=== PATIENT | male | born 1985 | race African-American/Black ===

== ENCOUNTER 2017-03-20 04:02 | Inpatient (IN) | payer OTHER ==
--- NOTE | 2017-03-20 04:27 | HP ---
CIWA Score - CIWA Score Nausea/Vomitin Muscle Tremors: 3 Anxiety: 3 Agitation: 2 Paroxysmal Sweats: 3 Orientation: 0-Oriented Tacttile Disturbances: 0-None Auditory Disturbances: 0-None Visual Disturbances: 0-None Headache: 3-Moderate CIWA-Ar Total Score: 17 Admission ROS S - HPI Chief Complaint: Alcohol withdrawal symptoms Allergies/Adverse Reactions: Allergies Allergy/AdvReac Type Severity Reaction Status Date / Time No Known Drug Allergies Allergy Verified 11/17/13 20:09 Pork/Porcine Containing AdvReac Verified 11/17/13 20:09 Products History of Present Illness: 31 years old male with a long history of alcohol, marijuana and cocaine dependence is seeking admission to detox. Patient has been in previous detox and reports 2 years of sobriety. He has medical history of asthma and depression. Denies suicidal ideation at this time. Patient states ," My goal is to stay clean and be with my daughter." Exam Limitations: No Limitations - Ebola screening Have you traveled outside of the country in the last 21 days: No Have you had contact with anyone from an Ebola affected area: No Have you been sick,other than usual withdrawal symptoms: No Do you have a fever: No - Review of Systems Constitutional: Chills, Loss of Appetite, Night Sweats, Changes in sleep EENT: reports: No Symptoms Reported Respiratory: reports: No Symptoms reported Cardiac: reports: No Symptoms Reported GI: reports: Nausea, Poor Appetite, Poor Fluid Intake, Abdominal cramping : reports: No Symptoms Reported Musculoskeletal: reports: No Symptoms Reported Neuro: reports: Headache, Tingling, Tremors Endocrine: reports: No Symptoms Reported Hematology: reports: No Symptoms Reported Psychiatric: reports: Orientated x3, Agitated, Anxious, Depressed Other Systems: Reviewed and Negative Patient History - Patient Medical History Hx Anemia: No Hx Asthma: Yes Hx Chronic Obstructive Pulmonary Disease (COPD): No Hx Cancer: No Hx Cardiac Disorders: No Hx Congestive Heart Failure: No Hx Hypertension: No Hx Hypercholesterolemia: No Hx Pacemaker: No HX Cerebrovascular Accident: No Hx Seizures: No Hx Dementia: No Hx Diabetes: No Hx Gastrointestinal Disorders: No Hx Liver Disease: No Hx Genitourinary Disorders: No Hx Sexually Transmitted Disorders: No Hx Renal Disease (ESRD): No Hx Thyroid Disease: No Hx Human Immunodeficiency Virus (HIV): No (Negative 2016) Hx Hepatitis C: No (Negative 2017) Hx Depression: No Hx Suicide Attempt: No Hx Bipolar Disorder: Yes Hx Schizophrenia: No - Patient Surgical History Past Surgical History: No Hx Neurologic Surgery: No Hx Cataract Extraction: No Hx Cardiac Surgery: No Hx Lung Surgery: No Hx Abdominal Surgery: No Hx Appendectomy: No Hx Cholecystectomy: No Hx Genitourinary Surgery: No Hx Orthopedic Surgery: No Anesthesia Reaction: No - PPD History Previous Implant?: Yes Documented Results: Negative w/o proof Implanted On Prior [facility] Admission?: Yes Date: 11/19/13 PPD to be Administered?: Yes - Reproductive History Patient is a Female of Child Bearing Age (11 -55 yrs old): No (Male) - Smoking Cessation Smoking history: Current every day smoker Have you smoked in the past 12 months: Yes Aproximately how many cigarettes per day: 40 Hx Chewing Tobacco Use: No Initiated information on smoking cessation: Yes 'Breaking Loose' booklet given: 03/20/17 - Substance & Tx. History Hx Alcohol Use: Yes (BEER) Hx Substance Use: Yes (Cocaine, marijuana) Substance Use Type: Cocaine, Marijuana Hx Substance Use Treatment: Yes ([facility]) - Substances Abused Alcohol Route: Oral Frequency: Daily Amount used: Beer: 2 (6 packs) Age of first use: 18 Date of Last Use: 03/19/17 Cocaine Route: Inhalation Frequency: Daily Amount used: $400 per day Age of first use: 18 Date of Last Use: 03/19/17 Marijuana/Hashish Route: Smoking Frequency: Daily Amount used: $40 Age of first use: 18 Date of Last Use: 03/19/17 Family Disease History - Family Disease History Family Disease History: Other: Father (alcohol and drugs), Mother (alcohol and drugs) Admission Physical Exam [facility] - Physical General Appearance: Yes: Moderate Distress, Tremorous, Irritable, Sweating, Anxious HEENTM: Yes: EOMI, Normal Voice, [place] Respiratory: Yes: Lungs Clear, Normal Breath Sounds, No Respiratory Distress Neck: Yes: Supple Breast: Yes: Breast Exam Deferred Cardiology: Yes: Regular Rhythm, Regular Rate, S1, S2, Other (chest wall) Abdominal: Yes: Normal Bowel Sounds, Soft Genitourinary: Yes: Within Normal Limits Musculoskeletal: Yes: Within Normal Limits Extremities: Yes: Tremors Neurological: Yes: Alert, Normal Response Integumentary: Yes: Dry, Other (both arms) Lymphatic: Yes: Within Normal Limits - Diagnostic (1) Alcohol dependence with uncomplicated withdrawal Current Visit: Yes Status: Chronic (2) Asthma Current Visit: Yes Status: Chronic (3) Depression Current Visit: Yes Status: Chronic (4) Cannabis dependence Current Visit: Yes Status: Chronic (5) Cocaine dependence Current Visit: Yes Status: Chronic (6) Nicotine dependence Current Visit: No Status: Acute Cleared for Admission S - Detox or Rehab [facility] Level of Care: Medically Managed Detox Regimen/Protocol: Librium BHS Breath Alcohol Content Breath Alcohol Content: 0 Vital Signs - Vital Signs Vital Signs Refused: Yes Temperature: 96.7 F Temperature Source: Oral Pulse Rate: 86 Respiratory Rate: 20 Blood Pressure: 162/97 BP Location: Left Arm Blood Pressure Position: Sitting - Height Height: 5 ft 9 in - Weight Weight: 183 lb Weight Measurement Method: Standing Scale Body Mass Index (BMI): 27.0 - Bowel Function Bowel Movement: Yes (BM in the morning) Urine Drug Screen - Test Device Lot Number: [id number] Expiration Date: 11/13/18 - Control Is Test Valid: Yes - Results Drug Screen Negative: Yes Urine Drug Screen Results: THC-Marijuana, CHANELLE-Cocaine
[2017-03-20] MEDS ORDERED: hydrOXYzine PAMOATE 50 MG CAPSULE (FP) PO PRN (04:42)
[2017-03-20] MEDS ORDERED: guaiFENesin/D-METHORPHAN HB 10 ML UNIT-DOSE CUPS PO PRN (04:42)
[2017-03-20] MEDS ORDERED: MAGNESIUM HYDROX 2400MG/30ML ORAL SUSPENSION 30 ML CUP PO PRN (04:42)
[2017-03-20] MEDS ORDERED: IBUPROFEN 400 MG TABLET (FP) PO PRN (04:42)
[2017-03-20] MEDS ORDERED: chlordiazePOXIDE HCL 25 MG CAPSULE PO ONE (04:42)
[2017-03-20] MEDS ORDERED: chlordiazePOXIDE HCL 25 MG CAPSULE PO PRN (04:42)
[2017-03-20] MEDS ORDERED: NICOTINE POLACRILEX 2 MG GUM BC PRN (04:42)
[2017-03-20] MEDS ORDERED: ACETAMINOPHEN 325 MG TABLET (FP) PO PRN (04:42)
[2017-03-20] MEDS ORDERED: MENTHOL/PHENOL 1 EACH UD MM PRN (04:42)
[2017-03-20] MEDS ORDERED: LOPERAMIDE HCL 2 MG CAPSULE PO PRN (04:42)
[2017-03-20] MEDS ORDERED: P-EPHED 60MG/TRIPROLIDI 2.5MG TABLET PO PRN (04:42)
[2017-03-20] MEDS ORDERED: MAG HYDROX/AL HYDROX/SIMETH 30 ML UNIT-DOSE CUP PO PRN (04:42)
[2017-03-20] MEDS ORDERED: MAGNESIUM CITRATE 300 ML BOTTLE PO PRN (04:42)
[2017-03-20] MEDS ORDERED: ALBUTEROL SO4 18 GM HFA INHALER IH PRN (04:46)
[2017-03-20 04:51] VITALS: BMI 27.0
[2017-03-20] MEDS: chlordiazePOXIDE HCL 25 MG CAPSULE PO SCH ×4 (05:55→22:08)
[2017-03-20] MEDS: NICOTINE 14 MG/24 HOURS TOPICAL PATCH TD SCH (10:24)
[2017-03-20] MEDS: PRENATAL VITAMINS W/ FOLIC ACID TABLET (FP) PO SCH (10:24)
--- NOTE | 2017-03-20 10:55 | CONSULT ---
[facility] Psychiatric Consult - Data Date of interview: 03/20/17 Admission source: [facility] Identifying data: Readmission to [facility] for this 31 y/o AA male seeking detox treatment on for alcohol,cannabis and cocaine dependence.Patient is single,a father of one,domiciled,unemployed and supported on SSI benefits. Substance Abuse History: Confirmed by patient in this interview.See current [facility] report for details. Smoking history: Current every day smoker. Have you smoked in the past 12 months: Yes. Aproximately how many cigarettes per day: 40. Hx Chewing Tobacco Use: No. Initiated information on smoking cessation: Yes. 'Breaking Loose' booklet given: 03/20/17. - Substance & Tx. History. Hx Alcohol Use: Yes (BEER). Hx Substance Use: Yes (Cocaine, marijuana). Substance Use Type: Cocaine, Marijuana. Hx Substance Use Treatment: Yes ([facility]) . - Substances Abused. Alcohol. Route: Oral. Frequency: Daily. Amount used: Beer: 2 (6 packs). Age of first use: 18. Date of Last Use: 03/19/17. * * Cocaine. Route: Inhalation. Frequency: Daily. Amount used: $400 per day. Age of first use: 18. Date of Last Use: 03/19/17. Marijuana/Hashish. Route : Smoking. Frequency: Daily. Amount used: $40. Age of first use: 18. Date of Last Use: 03/19/17 Medical History: Bronchial asthma. Psychiatric History: History of multiple psychiatric hospitalizations ([facility]).Diagnosed with Bipolar Disorder.Patient denies OPD care.Not on medications for several months.No recall of past medications.Mr Lechuga denies history of suicide attempts. Physical/Sexual Abuse/Trauma History: Patient denies. Additional Comment: Urine Drug Screen Results: THC-Marijuana, CHANELLE-Cocaine.Noted. Mental Status Exam - Mental Status Exam Alert and Oriented to: Time, Place, Person Cognitive Function: Good Patient Appearance: Well Groomed Mood: Hopeful, Euthymic Affect: Appropriate, Normal Range Patient Behavior: Fatigued, Cooperative Speech Pattern: Clear Voice Loudness: Normal Thought Process: Goal Oriented Thought Disorder: Not Present Hallucinations: Denies Suicidal Ideation: Denies Homicidal Ideation: Denies Insight/Judgement: Poor Sleep: Poorly, Difficulty falling asleep (wants benadryl) Appetite: Good Muscle strength/Tone: Normal Gait/Station: Normal Psychiatric Findings - Problem List ([place] 1, 2,3) (1) Alcohol dependence with uncomplicated withdrawal Current Visit: Yes Status: Acute (2) Cannabis dependence Current Visit: Yes Status: Acute (3) Cocaine dependence Current Visit: Yes Status: Acute (4) Nicotine dependence Current Visit: Yes Status: Acute (5) Substance induced mood disorder Current Visit: Yes Status: Acute (6) Insomnia Current Visit: Yes Status: Acute - Initial Treatment Plan Initial Treatment Plan: Psychoeducation.Sleep hygiene.Detoxification.Benadryl 50 mg po hs prn.Side effects/benefits discussed with patient.He agrees with this careplan.Observation.
--- NOTE | 2017-03-20 13:54 | PN ---
S CIWA - CIWA Score Nausea/Vomitin Muscle Tremors: 3 Anxiety: 3 Agitation: 3 Paroxysmal Sweats: 3 Orientation: 0-Oriented Tacttile Disturbances: 2-Mild Itch/Numbness/Burn Auditory Disturbances: 0-None Visual Disturbances: 0-None Headache: 3-Moderate CIWA-Ar Total Score: 20 BHS Progress Note (SOAP) Subjective: Vomiting, H/A, Body Aches, Sweating. Objective: PT. A & O X 3, OBSERVED AMBULATING ON UNIT. NO ACUTE DISTRESS. 03/20/17 13:51 Vital Signs Temperature 97.7 F 03/20/17 09:49 Pulse Rate 86 03/20/17 13:33 Respiratory Rate 20 03/20/17 13:33 Blood Pressure 146/85 03/20/17 13:33 O2 Sat by Pulse Oximetry (%) ADMISSION LABS PENDING. Assessment: 03/20/17 13:52 WITHDRAWAL SYMPTOMS. Plan: CONTINUE DETOX.
[2017-03-20 14:16] LABS: URINE APPEARANCE CLOUDY; URINE BILIRUBIN NEGATIVE (NEGATIVE); URINE BLOOD NEGATIVE (NEGATIVE); URINE COLOR YELLOW; URINE GLUCOSE (UA) NEGATIVE (NEGATIVE); URINE KETONE TRACE (NEGATIVE); URINE NITRITE NEGATIVE (NEGATIVE); URINE PROTEIN NEGATIVE (NEGATIVE)
[2017-03-20] MEDS: LISINOPRIL 10 MG TABLET (FP) PO SCH (15:10)
[2017-03-20 17:58] LABS: URINE LEUK ESTERASE Negative (NEGATIVE)
[2017-03-20] MEDS: THIAMINE HCL 100 MG TABLET (FP) PO SCH (22:08)
[2017-03-21] MEDS: chlordiazePOXIDE HCL 25 MG CAPSULE PO SCH ×4 (05:21→22:19)
--- NOTE | 2017-03-21 07:56 | EKG ---
Test Reason : Blood Pressure : / mmHG Vent. Rate : 092 BPM Atrial Rate : 092 BPM P-R Int : 128 ms QRS Dur : 078 ms QT Int : 354 ms P-R-T Axes : 054 030 017 degrees QTc Int : 437 ms NORMAL SINUS RHYTHM NONSPECIFIC ST AND T WAVE ABNORMALITY ABNORMAL ECG WHEN COMPARED WITH ECG OF 20-MAR-2017 07:07, NO SIGNIFICANT CHANGE WAS FOUND Confirmed by MD Osman Daniel [id number]) on 03/20/2017 4:47:24 PM Also confirmed by MD Osman Daniel ([id number]), publishing editor TARUN RAMON ([id number]) on 03/21/2017 7:56:18 AM Also confirmed by MD Osman Daniel ([id number]), publishing editor TARUN RAMON ([id number]) on 03/21/2017 8:26:50 AM Referred By: Confirmed By:Tarun Osman MD
--- NOTE | 2017-03-21 07:56 | EKG ---
Test Reason : Blood Pressure : / mmHG Vent. Rate : 078 BPM Atrial Rate : 078 BPM P-R Int : 128 ms QRS Dur : 086 ms QT Int : 364 ms P-R-T Axes : 056 047 028 degrees QTc Int : 414 ms SINUS RHYTHM WITH MARKED SINUS ARRHYTHMIA NONSPECIFIC ST AND T WAVE ABNORMALITY ABNORMAL ECG NO PREVIOUS ECGS AVAILABLE Confirmed by MD Osman Daniel ([id number]) on 03/20/2017 3:00:32 PM Also confirmed by MD Osman Daniel [id number]), book editor TARUN RAMON ([id number]) on 03/21/2017 7:56:25 AM Also confirmed by MD Osman Daniel [id number]), book editor TARUN RAMON ([id number]) on 03/21/2017 8:26:37 AM Also confirmed by MD Osman Daniel ([id number]), book editor TARUN RAMON ([id number]) on 03/21/2017 8:26:43 AM Referred By: Confirmed By:Tarun Osman MD
[2017-03-21] MEDS: LISINOPRIL 10 MG TABLET (FP) PO SCH (10:19)
[2017-03-21] MEDS: NICOTINE 14 MG/24 HOURS TOPICAL PATCH TD SCH (10:19)
[2017-03-21] MEDS: PRENATAL VITAMINS W/ FOLIC ACID TABLET (FP) PO SCH (10:19)
[2017-03-21 11:13] LABS: MCH 29.2 pg (25.7-33.7); MCHC 32.9 g/dl (32.0-35.9); MEAN CELL VOLUME 88.9 fl (80-96); MEAN PLT VOLUME 8.3 fl (7.5-11.1); PLATELET COUNT 290 K/MM3 (134-434); WHITE BLOOD COUNT 3.5 K/mm3 (4.0-10.0)
[2017-03-21 11:23] LABS: ALBUMIN 3.4 g/dl (3.4-5.0); ALK PHOS 49 U/L (45-117); ANION GAP 5 (8-16); BILIRUBIN,TOTAL 0.3 mg/dL (0.2-1.0); CALCIUM 8.7 mg/dL (8.5-10.1); CO2 29 mmol/L (21-32); CREATININE 0.9 mg/dL (0.7-1.3); GLUCOSE,RANDOM 82 mg/dL (74-106); SGOT/AST 12 U/L (15-37); SGPT/ALT 21 U/L (12-78); TOT PROT 6.2 g/dl (6.4-8.2)
--- NOTE | 2017-03-21 13:41 | PN ---
[facility] CIWA - CIWA Score Nausea/Vomitin-No Nausea/No Vomiting Muscle Tremors: None Anxiety: 4-Mod. Anxious/Guarded Agitation: 2 Paroxysmal Sweats: 3 Orientation: 0-Oriented Tacttile Disturbances: 2-Mild Itch/Numbness/Burn Auditory Disturbances: 0-None Visual Disturbances: 2-Mild Sensitivity Headache: 3-Moderate CIWA-Ar Total Score: 16 BHS Progress Note (SOAP) Subjective: Interrupted Sleep, H/A, Body Aches, Sweating. Objective: PT. A & O X 3, OBSERVED AMBULATING ON UNIT. NO ACUTE DISTRESS. 03/21/17 13:39 Vital Signs Temperature 97.4 F L 03/21/17 13:24 Pulse Rate 91 H 03/21/17 13:24 Respiratory Rate 20 03/21/17 13:24 Blood Pressure 114/74 03/21/17 13:24 O2 Sat by Pulse Oximetry (%) Laboratory Tests 03/20/17 03/21/17 03/21/17 10:25 07:00 07:00 WBC 3.5 L RBC 4.53 Hgb 13.2 Hct 40.3 MCV 88.9 MCH 29.2 MCHC 32.9 RDW 15.0 Plt Count 290 MPV 8.3 Sodium 141 Potassium 4.4 Chloride 107 Carbon Dioxide 29 Anion Gap 5 L BUN 15 Creatinine 0.9 Creat Clearance w eGFR > 60 Random Glucose 82 Calcium 8.7 Total Bilirubin 0.3 AST 12 L ALT 21 Alkaline Phosphatase 49 Total Protein 6.2 L Albumin 3.4 Urine Color Yellow Urine Appearance Cloudy Urine pH 5.0 Ur Specific [place] 1.023 Urine Protein Negative Urine Glucose (UA) Negative Urine Ketones Trace H Urine Blood Negative Urine Nitrite Negative Urine Bilirubin Negative Urine Urobilinogen 2.0 Ur Leukocyte Esterase Negative LABS NOTED. RPR, HCV AB, AND HIV AB RESULTS PENDING. 03/21/17 13:40 Assessment: 03/21/17 13:40 WITHDRAWAL SYMPTOMS. Plan: CONTINUE DETOX. INCREASE DAILY PO FLUID INTAKE.
[2017-03-21 13:43] LABS: HIV 1 & 2 AB NEGATIVE; HIV 1 AGp24 NEGATIVE
[2017-03-21] MEDS: IBUPROFEN 600 MG TABLET (FP) PO PRN (17:51)
[2017-03-21] MEDS: THIAMINE HCL 100 MG TABLET (FP) PO SCH (22:19)
[2017-03-22] MEDS: chlordiazePOXIDE 5 MG CAPSULE PO SCH ×4 (05:36→22:14)
[2017-03-22] MEDS: PRENATAL VITAMINS W/ FOLIC ACID TABLET (FP) PO SCH (10:31)
[2017-03-22] MEDS: NICOTINE 14 MG/24 HOURS TOPICAL PATCH TD SCH (10:32)
[2017-03-22] MEDS: LISINOPRIL 10 MG TABLET (FP) PO SCH (10:32)
[2017-03-22] MEDS: DOCUSATE SODIUM 100 MG CAPSULE (FP) PO SCH ×3 (10:33→22:14)
[2017-03-22] MEDS: IBUPROFEN 600 MG TABLET (FP) PO PRN (11:55)
--- NOTE | 2017-03-22 15:42 | PN ---
BHS Progress Note (SOAP) Subjective: Body Aches, Anxious, Interrupted Sleep, Sweating, Constipation, Stomach Cramping. Objective: PT. A & O X 3, OBSERVED AMBULATING ON UNIT. NO ACUTE DISTRESS. 03/22/17 15:41 Vital Signs Temperature 97.6 F 03/22/17 13:09 Pulse Rate 75 03/22/17 13:09 Respiratory Rate 18 03/22/17 13:09 Blood Pressure 127/87 03/22/17 13:09 O2 Sat by Pulse Oximetry (%) Laboratory Tests 03/20/17 03/21/17 03/21/17 10:25 07:00 07:00 WBC 3.5 L RBC 4.53 Hgb 13.2 Hct 40.3 MCV 88.9 MCH 29.2 MCHC 32.9 RDW 15.0 Plt Count 290 MPV 8.3 Sodium 141 Potassium 4.4 Chloride 107 Carbon Dioxide 29 Anion Gap 5 L BUN 15 Creatinine 0.9 Creat Clearance w eGFR > 60 Random Glucose 82 Calcium 8.7 Total Bilirubin 0.3 AST 12 L ALT 21 Alkaline Phosphatase 49 Total Protein 6.2 L Albumin 3.4 Urine Color Yellow Urine Appearance Cloudy Urine pH 5.0 Ur Specific [place] 1.023 Urine Protein Negative Urine Glucose (UA) Negative Urine Ketones Trace H Urine Blood Negative Urine Nitrite Negative Urine Bilirubin Negative Urine Urobilinogen 2.0 Ur Leukocyte Esterase Negative RPR Titer Hepatitis C Antibody HIV 1&2 Antibody Screen HIV P24 Antigen 03/21/17 03/21/17 03/21/17 07:00 07:00 07:00 WBC RBC Hgb Hct MCV MCH MCHC RDW Plt Count MPV Sodium Potassium Chloride Carbon Dioxide Anion Gap BUN Creatinine Creat Clearance w eGFR Random Glucose Calcium Total Bilirubin AST ALT Alkaline Phosphatase Total Protein Albumin Urine Color Urine Appearance Urine pH Ur Specific [place] Urine Protein Urine Glucose (UA) Urine Ketones Urine Blood Urine Nitrite Urine Bilirubin Urine Urobilinogen Ur Leukocyte Esterase RPR Titer Nonreactive Hepatitis C Antibody <0.1 HIV 1&2 Antibody Screen Negative HIV P24 Antigen Negative LABS NOTED. Assessment: 03/22/17 15:41 WITHDRAWAL SYMPTOMS. Plan: CONTINUE DETOX. INCREASE DAILY PO FLUID INTAKE. PRN MOM FOR CONSTIPATION.
[2017-03-22] MEDS: THIAMINE HCL 100 MG TABLET (FP) PO SCH (22:14)
[2017-03-23] MEDS ORDERED: chlordiazePOXIDE HCL 10 MG CAPSULE PO SCH (05:00)
[2017-03-23] MEDS: DOCUSATE SODIUM 100 MG CAPSULE (FP) PO SCH (07:31)
[2017-03-23 09:25] VITALS: BP 135/84; PULSE 78; TEMP 97.4
== END 2017-03-23 09:58 | disposition home or self-care (01) | DRG 774 ==
LOC: YASAS 04:02 → Y3N 04:21
PROVIDERS: ADMIT Internal Medicine; ATTEND Internal Medicine
PROC: HZ2ZZZZ Detoxification Services for Substance Abuse Treatment (ICD-10-PCS; principal; 2017-03-20)
DX: F10.230 Alcohol dependence with withdrawal, uncomplicated (principal); F14.20 Cocaine dependence, uncomplicated; F12.20 Cannabis dependence, uncomplicated; F17.210 Nicotine dependence, cigarettes, uncomplicated; F31.9 Bipolar disorder, unspecified; F19.24 Other psychoactive substance dependence with psychoactive substance-induced mood disorder; G47.00 Insomnia, unspecified
CPT/HCPCS: 36415; 80053; 81003; 85027; 86593; 86803; 87389; 93005; 93010